=== PATIENT | male | born 1975 | race Caucasian/White ===

== ENCOUNTER 2024-11-15 15:31 | Emergency (ER) | payer OTHER ==
[~2024-11-15] VITALS: Ht 182.9 cm; Wt 59.0 kg
[2024-11-15] MEDS ORDERED: Ketorolac Tromethamine 15mg Vial IM ONE (16:50)
== END 2024-11-15 18:36 | disposition home or self-care (01) ==
LOC: ER 15:31
DX: S20.212A Contusion of left front wall of thorax, initial encounter (principal); M25.552 Pain in left hip; Z88.5 Allergy status to narcotic agent; Z59.89 Other problems related to housing and economic circumstances; Y09 Assault by unspecified means
CPT/HCPCS: 71046; 73502; 96372; 99283-25; J1885

== ENCOUNTER 2025-02-25 10:57 | Emergency (ER) | payer OTHER ==
[~2025-02-25] VITALS: Ht 175.3 cm; Wt 63.5 kg
[2025-02-25] MEDS ORDERED: IBUP800 PO (14:30)
[2025-02-25] MEDS ORDERED: LIDO700A20 TOP (14:30)
[2025-02-25] MEDS ORDERED: Lidocaine 4% 1 Patch TOP ONE (14:35)
[2025-02-25] MEDS ORDERED: Ketorolac Tromethamine 30mg Vial IM ONE (14:35)
[2025-02-25] MEDS ORDERED: ACYC800 PO (15:02)
== END 2025-02-25 15:07 | disposition home or self-care (01) ==
LOC: ER 10:57
DX: B02.9 Zoster without complications (principal); S22.32XD Fracture of one rib, left side, subsequent encounter for fracture with routine healing; W19.XXXD Unspecified fall, subsequent encounter; Z88.5 Allergy status to narcotic agent
CPT/HCPCS: 71100; 96372; 99283-25; A9270; J1885